=== PATIENT | female | born 1995 | race African-American/Black ===

== ENCOUNTER 2017-06-02 20:33 | Emergency (ER) | payer MEDICAID ==
[~2017-06-02] VITALS: Ht 160 cm; Wt 109.8 kg
[~2017-06-02 20:33] MED LIST: FLEXERIL10 MG PO; FLUOXETINE HCL10 MG PO; NORCO 325 MG-51 TAB PO; PEPCID20 MG OR; PREVIFEM PO; PROZAC10 MG PO
--- NOTE | 2017-06-02 20:58 | [facility] Report ---
History of Present Issue Date/Time Seen by Provider 06/02/172057 Visit Reason Pt arrived:Walked Presenting Problem:PT STATES SORE THROAT THAT BEGAN THIS MORNING Location if Accident: Onset of symptoms date/time:06/02/17/ or onset unknown for:MEDICAL HX UNKNOWN Have you (or family members/close friends) recently traveled outside the [place]? N If Yes, where/when: Have you had exposure to infectious disease within the past month? TB? Other? Specify: Here w/ Boyfriend c/o sore throat only. New this morning. painful swallowing. No fever, aches, chills. Hasn't taken or tried anything for symptoms. No known sick contacts. Denies difficulty swallowing or breathing. Source patient Exam Limitations no limitations ALLERGIES Coded Allergies: Onion (Mild, 08/04/14) latex (06/02/17) Uncoded Allergies: ZOFRAN (06/02/17) Home Medications Active Scripts Cyclobenzaprine Hcl (Flexeril) 10 MG PO BID #14 TAB Prov: 07/20/14 HYDROCODONE/ACETAMINOPHEN ([place] 5-325 Tablet) 1 TAB PO Q6HP PRN pain #6 TAB Prov: 07/20/14 Famotidine (Pepcid 20MG Tab) 20 MG OR BID #15 TAB Prov: 08/04/14 Reported Medications Fluoxetine Hcl (Prozac) 10 MG PO DAILY NORGESTIMATE-ETHINYL ESTRADIOL (Previfem Tablet) 1 TAB PO DAILY #28 History Medical History General CAD? No Angina: No ME: No Hypertension? Yes Hyperlipidemia? No CHF? No DVT? No PE? No COPD? No Asthma? Yes Anemia? No GERD? No Gastric ulcers? No GI Bleed? No Hernia? No Thyroid Problems? No Hypothyroidism? No CVA? No Seizures? No Diabetes? No Renal Insuffiency? No UTI? No Stones? No BPH? No GB Disease: No Nephritic Syndrome? No Asplenia? No Hepatitis? No Sickle Cell Disease? No Arthritis? No Migraines? No Cataracts? No Glaucoma? No MRSA? No HIV? No TB? No Anxiety? No Depression? No Cancer? No Immunization HX DT/Tetanus 1-4 Years Ago Surgical Hx Previous Surgery?N Social History Smoking Hx Smoker: Current Every Day Smoker Tobacco: Yes Type Cigarettes Packs/day < 1 Pack Alcohol Alcohol: No Review of Systems All Other Systems Reviewed and Negative Constitutional see HPI Eyes denies drainage ENT denies: ear pain, nose discharge, nose congestion. Respiratory denies cough, denies shortness of breath Gastrointestinal denies no symptoms reported Musculoskeletal denies other (denies aches) Skin denies rash Psychiatric/Neurological denies headache Physical Exam Vital Signs Vital Signs Date Time Temp Pulse Resp B/P Pulse O2 O2 Flow FiO2 Ox Delivery Rate 06/02 2137 98.1 92 18 150/93 97 06/02 2049 98.1 92 18 150/93 97 General Appearance no apparent distress, obese Eye Exam - bilateral eye normal exam Ear, Nose, Throat pharyngeal erythema, tonsillar exudate, tonsillar swelling (4+ ), airway patent Neck non-tender, supple Respiratory Status No: respiratory distress. Lung Sounds anterior: lungs clear. posterior: lungs clear. bilateral: lungs clear. Cardiovascular regular rate/rhythm, no peripheral edema, no murmur Neurologic alert, oriented x 3 Skin normal color, warm/dry Lymphatic no adenopathy Medical Decision Making LABS/Meds/Orders Pt receiving controlled substance in ED? No Results/Orders Laboratory Tests 06/02/172039: Group A Strep Screen NOT DETECTED Current Medication Orders Sig/Mary Start time Last Medication Dose Route Stop Time Status Admin Prednisone 0 .STK-MED ONE 06/02 2122 DC .ROUTE Amoxicillin 875 MG ONCE ONE 06/02 2115 DC 06/02 PO 06/02 Prednisone 40 MG ONCE ONE 06/02 2115 DC 06/02 PO 06/02 Amoxicillin 0 .STK-MED ONE 06/02 2111 DC PO Prednisone 0 .STK-MED ONE 06/02 2111 DC .ROUTE Orders Procedure Date/time Status [facility] STREP SCREEN 06/02 2058 Complete Progress [facility] Progress Notes Date 06/03/17 Time 2109 Comment pt refusing injection of antibiotic and/or steroid. "I don't do shots. I refuse to have shots." Discussed risk of continued swelling. Pt accepts risk and continues to refuse injections. Departure Departure Time of Disposition 2131 Disposition DC Home or Self Care(routine) Clinical Impression Primary Impression: Tonsillitis Condition STABLE Referrals CARO MARTÍNEZ (Family) Call tomorrow and schedule follow up appt to ensure tonsil size is improving. 911 for any difficulty breathing or swallowing. Seek treatment for new or worsening symptoms. Patient Instructions DI for Pharyngitis/Tonsillopharyngitis -- Adult Additional Instructions * Start antibiotic in the morning as you had a dose in the clinic and be sure to take as ordered for the FULL length of time although you should start to feel better in 24-48 hours. * Start steroid tomorrow. You had a dose in the clinic. * change toothbrush and toothpaste 24-48 hours after starting antibiotic * Monitor Temp. Tylenol every 4 hours as needed and/or ibuprofen every 6 hours as needed (as long as your primary care doctor has told you that it is ok to take both) for fever/aches/pain. ER if fever no less than 101 despite tylenol and Ibuprofen * Encourage fluids, water, gatorade, powerade, pedialyte if infant/toddler/child * cold fluids, popsicles, ice cream feel good * Avoid kissing anyone, including parents. No eating or drinking after anyone. You are contagious. * * Your throat swab was sent for culture. Those results are typically sent to your primary care. Be sure to follow up in 2-3 days if no improvement so they can review those results and treat if necessary. If you don't have primary care, I recommend you get one but in the mean time, you will have to return to a walk in clinic. Discharge Counseling Counseled pt/family regarding diagnosis, test results, medications/RX, home care, follow up needs Prescriptions Current Visit Scripts Amoxicillin 11 ML PO BID #220 ML Can't swallow pills Methylprednisolone (Medrol Dose Uriah) 4 MG PO UD #1 URIAH TAKE DIRECTED ON PACKAGING at 0931
[2017-06-02] MEDS ORDERED: AMOXICILLI400 MG/52 PO (21:35)
[2017-06-02] MEDS ORDERED: MEDROL 4MG. DOSE4 MG PO (21:35)
[2017-06-02 21:37] VITALS: BP 150/93
== END 2017-06-02 21:38 | disposition home or self-care (01) ==
LOC: UTC 20:33
DX: J03.90 Acute tonsillitis, unspecified (principal); Z72.0 Tobacco use